=== PATIENT | male | born 1995 | race Asian ===

== ENCOUNTER → 2018-12-17 05:39 | Day surgery (SDC) | payer BC, OTHER ==
[~2018-12-17 05:39] MED LIST: Buffered Lidocaine 1% SYRIN* 1 ML/SYRINGE INTRADERM ONE; Bupivacaine 0.5% W/EPI SDV* 10 ML VIAL INJ ONE; Clindamycin 900 MG/D5W BAG(*) 900 MG/50 ML BAG IVPB ONE; Dexamethasone IV* 4 MG/ML 1 ML (4 MG) IV SLOW PU ONE; Dexamethasone IV* 4 MG/ML 1 ML (4 MG) ONE; DiMENhydriNATE IV* 50 MG/ML VIAL IV PUSH PRN; EPINEPHRINE 1 MG/ML 1 ML VIAL ONE; Famotidine IV* 10 MG/ML 2 ML (20 mg) IV ONE; Famotidine IV* 10 MG/ML 2 ML (20 mg) ONE; HYDROcodone/ACETAMIN 5-325 MG* 1 TAB PO PRN; KETAMINE HCL* 50 MG/ML 10 ML VIAL ONE; Ketorolac INJ* 30 MG/ML 1 ML VIAL ONE; Labetalol IV* 5 MG/ML 20 ML VIAL ONE; Lactated Ringers 1000 ML Bag* 1,000 ML IV SCH; Lidocaine 2% PF * 5 ML VIAL ONE; Midazolam* 1 MG/ML 5 ML VIAL (5 MG) ONE; Naloxone* 0.4 MG/ML 1 ML VIAL IV PRN; Ondansetron INJ* 2 MG/ML VIAL ONE; Propofol* 10 MG/ML 20 ML BTL ONE; Scopolamine 1.5 mg* PATCH TRANSDERM PRN; Scopolamine PATCH Remove* 1 NOTE MISC PATCH OFF ONE; fentaNYL* 50 MCG/ML 2 ML VIAL (100 MCG VIAL) ONE; fentaNYL* 50 MCG/ML 5 ML VIAL (250 MCG VIAL) ONE; oxyCODONE/Acetamin 5/325 MG* TAB ONE
[2018-12-17] MEDS: oxyCODONE/Acetamin 5/325 MG* TAB PO PRN ×2 (11:53→12:15)
[2018-12-17] MEDS: fentaNYL* 50 MCG/ML 2 ML VIAL (100 MCG VIAL) IV PRN ×2 (11:54→12:08)
[2018-12-17 12:53] VITALS: BP 149/87
--- NOTE | 2018-12-18 22:17 | OP ---
OPERATIVE REPORT: DATE OF OPERATION: 12/17/18 DATE OF : 89 SURGEON: Leoncio Rascon MD. HAIR BALER: BILL Guy A physician greenhouse assistant was required for the length of the procedure for assistance with patient positi oning, retraction, instrumentation, and closure. ANESTHESIOLOGIST: Dr. Debbie Guerrero. ANESTHESIA: General anesthesia, local anesthesia with Marcaine 0.5% with epinephrine. PRE-OP DIAGNOSES: 1. Right knee anterior cruciate ligament tear. 2. Right knee medial meniscus tear. POST-OP DIAGNOSES: 1. Right knee anterior cruciate ligament tear. 2. Right knee medial meniscus tear. 3. Right knee lateral meniscus tear. OPERATIVE PROCEDURE: 1. Right knee arthroscopic anterior cruciate ligament reconstruction with bone- patella-bone autogra ft. 2. Right knee arthroscopic medial meniscus repair, using all-inside fixation. 3. Right knee arthroscopic partial lateral meniscectomy. ANTIBIOTICS: Clindamycin 900 mg IV. IV FLUIDS: 1300 cc crystalloid. [id number] TIME: 161 minutes. TOURNIQUET TIME: Total of 142 minutes at 300 mmHg right thigh tourniquet. However, there was a [facility] within that time period allowing for slightly more than 120 minutes. SPECIMEN: None. IMPLANTS: [employer] Bio[employer] Interference screws, 9 mm x 20 mm x2 used. [employer] FasT-Fix 360 fixation device x1. COMPLICATIONS: None. ESTIMATED BLOOD LOSS: Minimal. 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 MRI demonstrated ACL and medial me niscus tears. I met the patient in clinic in May 2018. He had seen previously a colleague of [facility] in January- February 2018. At his first visit with wv, I recommended surgery, but the patient wanted to avoid sarkar rgery. He continued to be symptomatic and changed his mind and opted for surgery. We spoke to the patient about technical matters, graft choices and postoperative rehabilitation and l imitations. We decided on [id number] autograft for graft choice. The patient was supposed to go to physical therapy preoperatively, but did not go. I discussed risks and potential complications of surgery including bleeding, infection, nerve or bloo d vessel injury, blood clot, ACL re-tear, knee joint stiffness, pain. DESCRIPTION OF PROCEDURE: In the preoperative holding, the patient signed a written consent. Operat robin extremity was marked in the preoperative holding. The patient was taken back to the operating ro om and placed supine on operating room table. Sedated and intubated. A blanket bump was placed under the right hemipelvis. A lateral post was placed on the table. Tourn iquet was placed around the right proximal thigh and the right lower extremity was prepped and draped . Surgical time-out was performed. Esmarch was applied and tourniquet was elevated. Anterolateral knee arthroscopy portal was establish ed using a standard technique. Commenced knee arthroscopy. Patellofemoral compartment had some notab le synovitis, but no articular cartilage damage. Moved down to the medial compartment. Confirmed ex istence of medial meniscus tear posterior horn. Made an anteromedial knee arthroscopy portal under direct visualization. Debrided some synovitic tis gaby anteriorly with an arthroscopic shaver. I used a probe to probe the posterior horn of the medial meniscus. The patient clearly had some tear ing in the posterior horn medial meniscus with some instability. The medial compartment was noted fo r being pretty tight. Next, I repaired the medial meniscus using an all-inside fixation device, [employer] FasT-Fix 3 60. Device was placed through the anteromedial portal. After device was placed, I probed the menisc us and it was stable. I moved to the lateral compartment. Lateral compartment demonstrated an unexpected lateral meniscus tear. This was a small tear. It was radial in shape. It was only minimally partial thickness, in t he white-white zone in the mid body. I used an arthroscopic shaver and meniscal biters to smooth out that area of meniscus tear. Proceeded to the intercondylar notch. Some of the ACL distally was still present. I probed the ACL, debrided the smallest amount of scar tissue and noted complete 100% ACL rupture. Removed instruments from the knee and applied the [facility] knee positioner system. Proceeded to harvest a ebln-rcdqbur-[id number] autograft. Standard skin incision. Dissection down to the p eritenon. Cut peritenon. Harvested graft. Harvested proximally 23 mm in length of bone on the crawford lla and 35 mm on the tibia. Width of the graft was 10 mm. Removed that graft. Closed the patellar tendon with buried yqtqeo-gc-kwktr stitches using Ethibond 0 suture. Dropped the tourniquet. The tourniquet was down for at least 21 minutes. I moved to the back table and prepared my graft. I contoured the bony blocks. High quality graft was noted. I placed drill holes 1 proximally and 2 d istally. I placed #5 FiberWire stitches 1 proximally and 2 distally. I held the graft under tension . Returned to the knee. We applied Esmarch and reelevated tourniquet. Performed notchplasty. Used around the back guide to place my femoral tunnel. I used a variety of a natomic landmarks including proximal extent of the posterior articular cartilage and the clock face. Dilled my femoral tunnel, 10 mm wide. Drilled that in approximately 115 degrees in knee flexion. Next, I placed my tibial Beath pin using an ACL tibial guide set at 6 degrees. Reamed a 10 mm tibial tunnel. I placed a passing suture through the tunnels and then placed my graft. I fixed my graft in the femu r and tibia with 9 x 20 mm Interference screws. The purchase appeared excellent in both femur and ti hayde. There was loud squeaking in each. The tibial screw was placed with the knee in full extension and a posterior drawer applied. I next examined the knee and the ACL was phenomenally tight with Jessie's and anterior drawer. I sc oped the knee and found the ACL graft to be tight and in excellent position and a variety of knee fle xion positions. I next closed the bony defects, placing in bony fragments from my contouring of the bone blocks as we ll as with some bone collected from my shaving of the tunnels, creating of the bone tunnels, includin g some bone obtained using a capture device applied to the arthroscopic shaver. I closed peritenon with a running stitch using Vicryl 0 suture. Closed periosteum and fascia about t he tibial tunnel site with a buried and non-buried figure-of- eight stitches using Vicryl 0 suture an d closed the subcutaneous tissue with buried simple stitches using Vicryl 2-0 suture. Closed skin in cisions with nylon 3-0 suture with a variety of stitch configurations. Local anesthetic was injected . Xeroform, 4 x 4s, ABD, sterile Webril, Webril, Alberto bandage. Cooling unit applied to the knee. Bra ce locked in extension. The patient was awakened, extubated and transferred to the PACU. DISPOSITION: The patient was discharged home with Percocet as needed for pain control, Keflex for 7 days for infection prophylaxis and aspirin for 2 weeks for DVT prophylaxis. The patient will follow u p with me in clinic in 10 to 14 days postoperatively. The patient will start physical therapy immedi ately. The patient is to be nonweightbearing because of the meniscal repair. [id number]/[facility] #: [id number]
== END | disposition home or self-care (01) ==
LOC: OR 05:39
PROVIDERS: ATTEND Orthopaedic Surgery
DX: S83.511D Sprain of anterior cruciate ligament of right knee, subsequent encounter (principal); S83.241D Other tear of medial meniscus, current injury, right knee, subsequent encounter; W19.XXXD Unspecified fall, subsequent encounter; Y92.322 Soccer field as the place of occurrence of the external cause
CPT/HCPCS: A9270-GY; C1713; J1100; J1885; J2250; J2405; J2704; J3010